=== PATIENT | female | born 1955 | race Caucasian/White ===

== ENCOUNTER 2016-09-18 21:48 | Emergency (ER) | payer OTHER, SELFPAY ==
[2016-09-18] MEDS ORDERED: Sodium Chloride 0.9% 1,000 ML IV ONE (22:18)
--- NOTE | 2016-09-18 22:19 | EDM.PDOC ---
ED HPI RENAL/ - General Chief Complaint: Genitourinary Problem Stated Complaint: KIDNEY STONE Time Seen by Provider: 09/18/16 22:30 Source of Information: Reports: Patient History Limitations: Reports: No limitations - History of Present Illness INITIAL COMMENTS - FREE TEXT/NARRATIVE: c/o severe left flank and lower abdominal pain. CT down 09/10 with left kidny stone, was placed on flomax. Folow up with PCP on Saturday, pain worse this lokesh. Has only been taking ibuprofen. Remote hx 15 years ago of kidney stones. Pain has improved from nursing triage to time seen by provider. UA obtained by nursing pink, concentrated with few shreds of clot. - Related Data Allergies/ADRs: Allergies Allergy/AdvReac Type Severity Reaction Status Date / Time scallops Allergy Nausea and Verified 09/18/16 22:04 Vomiting Home Meds: Home Meds Tamsulosin [Flomax] 0.4 mg PO PCBREAKFAST 09/18/16 [History] Past Medical History Genitourinary History: Reports: Renal calculus Musculoskeletal History: Reports: Other (see below) Other Musculoskeletal History: left shoulder injury needs to schedule surgery - Past Surgical History Female Surgical History: Reports: Oophorectomy Social & Family History - Tobacco Use Smoking Status *Q: Never Smoker Second Hand Smoke Exposure: No - Recreational Drug Use Recreational Drug Use: No ED ROS GENERAL - Review of Systems Review Of Systems: See Below Constitutional: Reports: no symptoms HEENT: Reports: No symptoms Respiratory: Reports: No Symptoms Cardiovascular: Reports: No symptoms GI/Abdominal: Reports: Nausea ( at times) : Reports: flank pain (left, bilateral kidney stones on 09/10), hematuria, pain Skin: Reports: no symptoms Neurological: Reports: No Symptoms Psychiatric: Reports: No symptoms ED EXAM, RENAL/ - Physical Exam Exam: See Below Exam Limited By: No limitations General Appearance: alert, mild distress (left lower quad, colic pain improved within past few minutes. ) Ears: normal external exam Nose: normal inspection Throat/Mouth: Normal inspection Head: atraumatic, normocephalic Neck: normal inspection Respiratory/Chest: no respiratory distress, lungs clear Cardiovascular: normal peripheral pulses, regular rate, rhythm GI/Abdominal: normal bowel sounds, soft. No: distended, guarding Back Exam: CVA tenderness (L) (mild) Extremities: normal inspection, normal range of motion Neurological: alert, oriented, normal cognition Skin Exam: Warm, Dry, Intact, Normal color Course - Vital Signs Last Recorded V/S: Last Vital Signs Temp 97.8 F 09/19/16 01:22 Pulse 87 09/19/16 01:22 Resp 18 09/19/16 01:22 BP 145/65 H 09/19/16 01:22 Pulse Ox 99 09/19/16 01:22 - Orders/Labs/Meds Labs: Laboratory Tests 09/18/16 09/18/16 09/18/16 Range/Units 22:14 22:26 22:26 WBC 9.3 (5.0-10.0) 10^3/uL RBC 4.62 (4.2-5.4) 10^6/uL Hgb 14.0 (12.0-16.0) g/dL Hct 40.8 (37.0-47.0) % MCV 88.3 (80-100) fL MCH 30.3 (27.0-34.0) pg MCHC 34.3 (33.0-35.0) g/dL Plt Count 216 (150-450) 10^3/uL Neut % (Auto) 52.9 (42.2-75.2) % Lymph % (Auto) 32.1 (20.5-50.1) % Nuckolls % (Auto) 7.0 (2-8) % Eos % (Auto) 6.8 H (1.0-3.0) % Baso % (Auto) 1.2 H (0.0-1.0) % Sodium 137 (135-145) mmol/L Potassium 3.7 (3.6-5.0) mmol/L Chloride 99 L (101-111) mmol/L Carbon Dioxide 29.0 (21.0-31.0) mmol/L Anion Gap 12.7 BUN 19 H (7-18) mg/dL Creatinine 0.7 (0.6-1.3) mg/dL Est Cr Clr Drug Dosing 84.15 mL/min Estimated GFR (MDRD) > 60 BUN/Creatinine Ratio 27.14 Glucose 93 (74-105) mg/dL Lactic Acid (0.5-2.2) mmol/L Calcium 9.6 (8.4-10.2) mg/dl Total Bilirubin 0.9 (0.2-1.0) mg/dL AST 23 (10-42) IU/L ALT 20 (10-60) IU/L Alkaline Phosphatase 76 (42-121) IU/L Total Protein 7.5 (6.7-8.2) g/dl Albumin 4.3 (3.2-5.5) g/dl Globulin 3.2 Albumin/Globulin Ratio 1.34 Amylase 34 (28-100) U/L Lipase 25 (22-51) U/L Urine Color Red (YELLOW) Urine Appearance Turbid (CLEAR) Urine pH 5.5 (5.0-9.0) Ur Specific Derry 1.020 (1.005-1.030) Urine Protein >=300 H (NEGATIVE) Urine Glucose (UA) Negative (NEGATIVE) Urine Ketones 15 H (NEGATIVE) Urine Occult Blood Large H (NEGATIVE) Urine Nitrite Negative (NEGATIVE) Urine Bilirubin Moderate H (NEGATIVE) Urine Urobilinogen 1.0 (0.2-1.0) mg/dL Ur Leukocyte Esterase Trace H (NEGATIVE) Urine RBC >100 H /HPF Urine WBC 5-10 H (0-5/HPF) /HPF Ur Epithelial Cells Few /HPF Calcium Oxalate Crystal Few H /HPF Urine Bacteria Few (0-FEW/HPF) /HPF Urine Mucus Moderate H /LPF // Range/Units 22:26 WBC (5.0-10.0) 10^3/uL RBC (4.2-5.4) 10^6/uL Hgb (12.0-16.0) g/dL Hct (37.0-47.0) % MCV (80-100) fL MCH (27.0-34.0) pg MCHC (33.0-35.0) g/dL Plt Count (150-450) 10^3/uL Neut % (Auto) (42.2-75.2) % Lymph % (Auto) (20.5-50.1) % Nuckolls % (Auto) (2-8) % Eos % (Auto) (1.0-3.0) % Baso % (Auto) (0.0-1.0) % Sodium (135-145) mmol/L Potassium (3.6-5.0) mmol/L Chloride (101-111) mmol/L Carbon Dioxide (21.0-31.0) mmol/L Anion Gap BUN (7-18) mg/dL Creatinine (0.6-1.3) mg/dL Est Cr Clr Drug Dosing mL/min Estimated GFR (MDRD) BUN/Creatinine Ratio Glucose (74-105) mg/dL Lactic Acid 1.3 (0.5-2.2) mmol/L Calcium (8.4-10.2) mg/dl Total Bilirubin (0.2-1.0) mg/dL AST (10-42) IU/L ALT (10-60) IU/L Alkaline Phosphatase (42-121) IU/L Total Protein (6.7-8.2) g/dl Albumin (3.2-5.5) g/dl Globulin Albumin/Globulin Ratio Amylase (28-100) U/L Lipase (22-51) U/L Urine Color (YELLOW) Urine Appearance (CLEAR) Urine pH (5.0-9.0) Ur Specific Derry (1.005-1.030) Urine Protein (NEGATIVE) Urine Glucose (UA) (NEGATIVE) Urine Ketones (NEGATIVE) Urine Occult Blood (NEGATIVE) Urine Nitrite (NEGATIVE) Urine Bilirubin (NEGATIVE) Urine Urobilinogen (0.2-1.0) mg/dL Ur Leukocyte Esterase (NEGATIVE) Urine RBC /HPF Urine WBC (0-5/HPF) /HPF Ur Epithelial Cells /HPF Calcium Oxalate Crystal /HPF Urine Bacteria (0-FEW/HPF) /HPF Urine Mucus /LPF Meds: Medications Discontinued Medications Generic Name Dose Route Start Last Admin Trade Name Freq PRN Reason Stop Dose Admin Sodium Chloride 1,000 mls @ 999 mls/hr 09/18/16 22:18 09/18/16 22:45 Normal Saline IV 09/18/16 23:18 999 mls/hr .BOLUS ONE Administration Ondansetron HCl Confirm 09/19/16 01:10 Zofran Odt Administered 09/19/16 01:11 Dose 8 mg .ROUTE .STK-MED ONE Oxycodone/Acetaminophen Confirm 09/19/16 01:09 Percocet 325-5 Mg Administered 09/19/16 01:10 Dose 2 tab .ROUTE .STK-MED ONE - Re-Assessments/Exams Free Text/Narrative Re-Assessment/Exam: Colic pain improved. CT result Left kidney edema with perirenal stranding. Attempt to contact urology [facility] who was unavailable due to being in surgery. Patient feeling improved, Patient appears reliable, given urology clinic # instructed to contact in am and contact primary provider for followup. Patient agreeable as would like to go home and rest. Instucted if difficulty with this to contact ED in am and will continue to assist with urology referral. Departure - Departure Time of Disposition: 01:30 Disposition: Home, Self-Care 01 Condition: fair Clinical Impression: Kidney stone Instructions: Kidney Stones, Renal Colic Forms: ED Department Discharge Additional Instructions: increase fluid intake percocet 5/325 one every 6 hours as needed for severe pain #8 Zofran ODT 4mg one every 6 hours as needed for pain #8 Continue Flomax Primary care provider in am. Recommend urology consult due continued presence of stone, symptomatic, "edematous left kidney, "
[2016-09-18 22:55] LABS: CHLORIDE,CL 99 mmol/L (101-111); SODIUM,NA 137 mmol/L (135-145)
[2016-09-19] MEDS ORDERED: Acetaminophen/oxyCODONE 325-5 MG Tab ONE (01:09)
[2016-09-19] MEDS ORDERED: Ondansetron 4 MG Tab.DIS PO ONE (01:10)
[2016-09-19] MEDS ORDERED: Ondansetron 4 MG Tab.DIS ONE (01:10)
[2016-09-19] MEDS ORDERED: Acetaminophen/oxyCODONE 325-5 MG Tab PO ONE (01:10)
[2016-09-19 01:23] VITALS: BP 145/65
== END 2016-09-19 01:32 | disposition home or self-care (01) ==
LOC: DL.ED 21:48
DX: N20.0 Calculus of kidney (principal)
CPT/HCPCS: 36415; 74176; 80053; 81001; 82150; 83605; 83690; 85025; 96360; 99284; A9270; J7030

== ENCOUNTER 2022-03-02 10:23 | Emergency (ER) | payer OTHER, SELFPAY ==
[2022-03-02] MEDS ORDERED: Sodium Chloride 0.9% 10 ML Syringe FLUSH PRN (10:26)
[2022-03-02] MEDS ORDERED: Aspirin 81 MG Tab.Chew PO ONE (10:39)
[2022-03-02 10:40] VITALS: BP 148/76; PULSE 79
[2022-03-02] MEDS ORDERED: Clopidogrel 75 MG Tab PO ONE (10:51)
[2022-03-02] MEDS ORDERED: Heparin Sodium 5,000 Units/ML Vial ONE (10:59)
[2022-03-02] MEDS ORDERED: Heparin Sodium/0.45% NaCl 25,000 UNITS/500 ML BAG IV SCH (11:00)
[2022-03-02] MEDS ORDERED: Heparin Sodium 5,000 Units/ML Vial IVPUSH ONE (11:02)
[2022-03-02 11:18] LABS: PTT,PARTIAL THROMBOPLSTIN TIME 23.4 SEC (22.0-34.0)
[2022-03-02 11:19] LABS: ANION GAP 16.5 mEq/L (7-13)
[2022-03-02 11:49] LABS: CORONAVIRUS COVID-19 NAA NEGATIVE (NEGATIVE)
== END 2022-03-02 12:10 ==
LOC: DL.ED 10:23
DX: I21.4 Non-ST elevation (NSTEMI) myocardial infarction (principal); Z91.013 Allergy to seafood; Z20.822 Contact with and (suspected) exposure to COVID-19
CPT/HCPCS: 0240U; 36415; 71045; 80053; 84443; 84484; 85025; 85610; 85730; 93005; 96365; 96375; 99285; A9270; J1644; J3490; 93010; 99284